=== PATIENT | female | born 1965 | race Caucasian/White ===

== ENCOUNTER 2020-04-16 17:54 | Emergency (ER) | payer OTHER ==
[2020-04-16] MEDS ORDERED: Tetracaine HCl/PF 0.5% 4 ML Bottle EYELF ONE (18:15)
--- NOTE | 2020-04-16 18:17 | EDM.PDOC ---
ED HPI GENERAL MEDICAL PROBLEM - General Chief Complaint: Eye Problems Stated Complaint: SOMETHING IN LT EYE Time Seen by Provider: 04/16/20 18:16 Source of Information: Reports: Patient History Limitations: Reports: No Limitations - History of Present Illness INITIAL COMMENTS - FREE TEXT/NARRATIVE: pt was raking and she got something in her eye- left. Onset: Today Duration: Hour(s): Location: Reports: Face Associated Symptoms: Reports: No Other Symptoms - Related Data Allergies Allergy/AdvReac Type Severity Reaction Status Date / Time No Known Allergies Allergy Verified 04/16/20 18:12 Home Meds: Home Meds NK [No Known Home Meds] 04/16/20 [History] ED ROS GENERAL - Review of Systems Review Of Systems: See Below Constitutional: Reports: No Symptoms HEENT: Reports: Eye Pain Respiratory: Reports: No Symptoms Cardiovascular: Reports: No Symptoms Endocrine: Reports: No Symptoms GI/Abdominal: Reports: No Symptoms : Reports: No Symptoms Musculoskeletal: Reports: No Symptoms Skin: Reports: No Symptoms ED EXAM GENERAL W FULL EYE - Physical Exam Exam: See Below Text/Narrative:: pt arrived with pain in the left eye. She was raking and thinks a tree branch hit her eye. Exam Limited By: No Limitations General Appearance: Alert, Anxious, Moderate Distress, Other ( eye appear quite injected. She did not have a foreign body in the eyen Tetracaine was inserted in the eye and the eye was stained and there was a moderately deep corneal abrasion over the mid corneal toward the inside of the eye there was a scratch on the conjuntivia. pupils were equal and reactive,. ) Ears: Normal External Exam Nose: Normal Inspection Throat/Mouth: Normal Inspection Head: Atraumatic Neck: Normal Inspection Course - Vital Signs Last Recorded V/S: Last Vital Signs Temp 36.6 C 04/16/20 18:19 Pulse 87 04/16/20 18:19 Resp 16 04/16/20 18:19 BP 149/92 H 04/16/20 18:19 Pulse Ox 99 04/16/20 18:19 - Orders/Labs/Meds Orders: Active Orders 24 hr Category Date Time Status Gentamicin [Gentak 0.3% Ophth Oint] Med 04/16/20 21:00 Ordered 1 gm EYELF TID Medication Orders Gentamicin Sulfate (Gentak 0.3% Ophth Oint) 1 gm EYELF TID QUYNH Meds: Medications Generic Name Dose Route Start Last Admin Trade Name Marques PRN Reason Stop Dose Admin Gentamicin Sulfate 1 gm 04/16/20 21:00 Gentak 0.3% Ophth Oint EYELF TID QUYNH Discontinued Medications Generic Name Dose Route Start Last Admin Trade Name Marques PRN Reason Stop Dose Admin Tetracaine HCl 1 ml 04/16/20 18:15 Tetracaine 0.5% Steri-Unit Duyen EYELF 04/16/20 18:16 ASDIRECTED ONE - Re-Assessments/Exams Free Text/Narrative Re-Assessment/Exam: 04/16/20 18:41 pt had tetraCAINE INSERTED AND SHE WAS MUCH MORE COMFORTABLE. Departure - Departure Time of Disposition: 18:33 Disposition: Home, Self-Care 01 Clinical Impression: Cornea abrasion - Discharge Information Referrals: PCP,None [Primary Care Provider] - Forms: ED Department Discharge Care Plan Goals: leave the patch on the left eye until mid morning. After that use the drops tid and dark glasses. getamycin eye drops tid for 5 days, recheck abrasion friday .motrin and tylenol for pain. Sepsis Event Note (ED) - Focused Exam Vital Signs: Vital Signs Temp Pulse Resp BP Pulse Ox 04/16/20 18:19 36.6 C 87 16 149/92 H 99 04/16/20 18:08 36.6 C 87 16 149/92 H 99 - My Orders Last 24 Hours: My Active Orders 04/16/20 21:00 Gentamicin [Gentak 0.3% Ophth Oint] 1 gm EYELF TID - Assessment/Plan Last 24 Hours: My Active Orders 04/16/20 21:00 Gentamicin [Gentak 0.3% Ophth Oint] 1 gm EYELF TID
== END 2020-04-16 19:06 | disposition home or self-care (01) ==
LOC: JP.ED 17:54
DX: S05.02XA Injury of conjunctiva and corneal abrasion without foreign body, left eye, initial encounter (principal); X58.XXXA Exposure to other specified factors, initial encounter
CPT/HCPCS: 99283; A9270